=== PATIENT | female | born 2000 | race Caucasian/White ===

== ENCOUNTER 2022-11-22 09:29 | Outpatient (CLI) | payer BC, SELFPAY ==
--- NOTE | 2022-11-22 09:45 | CRLHL7_ITS ---
For Patients: As a result of the Century Cures Act, medical imaging exams and procedure reports are released immediately into your electronic medical record. You may view this report before your referring provider. If you have questions, please contact your health care provider. INDICATION: menorrhagia COMPARISON: none TECHNIQUE: 2D harris scale and color Doppler images were acquired of the pelvis using a transabdominal and transvaginal approach. FINDINGS: Sonographic images demonstrate a normal size and smooth outer contour of the uterus. Uterus measures 8.1 cm in length by 3.8 cm in AP diameter by 5.2 cm in transverse dimension. The myometrium has a normal uniform echotexture. Intrauterine device is present in good position within the endometrial canal. A trace amount of endometrial fluid is present. The endometrial thickness is 3 millimeters. The right ovary measures 4.3 x 1.2 x 1.2 cm in size and the left ovary measures 4.3 x 1.9 x 1.9 cm. The ovaries demonstrate normal arterial and venous blood flow on color Doppler analysis. Trace physiologic free fluid noted. IMPRESSION: Normal position of the IUD. Trace endometrial fluid. Dictated by Ghanshyam Jimenez MD @ 11/22/2022 10:42:01 AM (Electronically Signed)
== END 2022-11-22 09:30 | disposition home or self-care (01) ==
LOC: US 09:29
PROVIDERS: PCP Family Medicine; Visit Provider Obstetrics & Gynecology
DX: N92.0 Excessive and frequent menstruation with regular cycle (principal)
CPT/HCPCS: 76830; 76856

== ENCOUNTER 2022-11-25 09:25 | Outpatient (CLI) | payer BC, SELFPAY ==
[2022-11-25 23:42] LABS: Chlamydia DNA Amplified* NOT DETECTED (No Detected); GC DNA Amplified* NOT DETECTED (No Detected)
== END 2022-11-25 09:26 | disposition home or self-care (01) ==
PROVIDERS: PCP Family Medicine; Visit Provider Registered Nurse
DX: N92.6 Irregular menstruation, unspecified (principal); Z11.3 Encounter for screening for infections with a predominantly sexual mode of transmission
CPT/HCPCS: 84443; 87491; 87591

== ENCOUNTER 2024-11-15 14:51 | Outpatient (CLI) | payer OTHER, SELFPAY | END 2024-11-15 14:52 | disposition home or self-care (01) | LOC: FRMREF 14:51 | PROVIDERS: PCP Family Medicine; Visit Provider Nurse Practitioner Family | DX: Z11.1 Encounter for screening for respiratory tuberculosis (principal) | CPT/HCPCS: 86480 ==

== ENCOUNTER 2025-02-06 08:22 | Outpatient (CLI) | payer OTHER, SELFPAY | END 2025-02-06 08:23 | disposition home or self-care (01) | PROVIDERS: PCP Family Medicine; Visit Provider Registered Nurse | DX: L65.9 Nonscarring hair loss, unspecified (principal) | CPT/HCPCS: 82728; 83540; 83550; 84443; 86592 ==